=== PATIENT | male | born 1955 | race Hispanic/Latino ===

== ENCOUNTER 2020-10-12 16:02 | Inpatient (IN) | payer MEDICARE ==
[~2020-10-12] VITALS: Ht 170.2 cm; Wt 81.6 kg
[~2020-10-12 16:02] MED LIST: Z.0.ASPIRIN325 MG PO; Z.0.CLOPIDOGREL75 MG PO; Z.0.CRESTOR40 MG PO; Z.0.METOPROLOL TART2 PO; Z.0.NITROSTAT0.4 MG SL; Z.0.TEMAZEPAM15 MG PO; Z.1.ISOSORBIDE MONO3 PO
[2020-10-12] MEDS ORDERED: SODIUM CHLORIDE 0.9% 500ML 500 ML IV ONE (18:15)
[2020-10-12] MEDS ORDERED: DEXAMETHASONE SOD PHOS INJ 4 MG/ML VIAL IV ONE (18:15)
[2020-10-12] MEDS ORDERED: SODIUM CHLORIDE 0.9% 50ML 50 ML ONE (18:16)
[2020-10-12] MEDS ORDERED: IOPAMIDOL 370 MG/ML 200 ML INFUS..BTL INJ ONE (18:16)
[2020-10-12] MEDS ORDERED: DEXAMETHASONE SOD PHOS INJ 4 MG/ML VIAL ONE (18:43)
[2020-10-12] MEDS ORDERED: SODIUM CHLORIDE 0.9% 500ML 500 ML ONE (18:44)
[2020-10-12] MEDS ORDERED: SODIUM CHLORIDE 0.9% 250ML 250 ML ONE (18:44)
[2020-10-12] MEDS ORDERED: CEFTRIAXONE 1 GM VIAL ONE (18:44)
[2020-10-12] MEDS: CEFTRIAXONE 1 GM in SODIUM CHLORIDE 0.9% 50ML 50 ML IV SCH (18:46)
[2020-10-12] MEDS ORDERED: ASPIRIN 81 MG CHEW TAB PO ONE (19:45)
[2020-10-12] MEDS ORDERED: SODIUM CHLORIDE FLUSH 10 ML SYR INJ PRN (19:45)
[2020-10-12 23:50] VITALS: BP 130/88
[2020-10-13] VITALS (8 sets, daily range): BP systolic 130–142; BP diastolic 81–89
[2020-10-13] MEDS: INSULIN LISPRO 100 UNIT/1 ML 3ML VIAL SQ SCH ×5 (00:30→20:21)
[2020-10-13] MEDS ORDERED: CETIRIZINE HCL10 MG PO (03:19)
[2020-10-13] MEDS ORDERED: PANTOPRAZOLE SO40 MG PO (03:19)
[2020-10-13] MEDS ORDERED: ZETIA10 MG PO (03:19)
[2020-10-13] MEDS ORDERED: LOSARTAN POTASS25 MG PO (03:19)
[2020-10-13] MEDS ORDERED: METFORMIN HCL500 MG PO (03:19)
[2020-10-13] MEDS ORDERED: ASPIRIN81 MG PO (03:19)
[2020-10-13] MEDS ORDERED: RANEXA500 MG PO (03:19)
[2020-10-13] MEDS ORDERED: NEURONTIN300 MG PO (03:19)
[2020-10-13] MEDS ORDERED: SERTRALINE HCL50 MG PO (03:19)
[2020-10-13 07:07] LABS: CREATINE KINASE MB 0.9 ng/mL (0-5.0)
[2020-10-13] MEDS ORDERED: SODIUM CHLORIDE 0.9% 250ML 250 ML ONE (12:29)
[2020-10-13] MEDS ORDERED: REMDESIVIR 200MG/NS 100ML 200 MG in SODIUM CHLORIDE 0.9% 100 ML 100 ML IV ONE (12:30)
[2020-10-13 13:40] LABS: CREATINE KINASE 86 IU/L (30-200)
[2020-10-13] MEDS: DEXAMETHASONE SOD PHOS 10 MG/1 ML VIAL IV SCH (17:39)
[2020-10-13] MEDS: ENOXAPARIN SOD INJ 40 MG/0.4 ML SYR SC SCH (20:20)
[2020-10-13] MEDS: CEFTRIAXONE 1 GM in SODIUM CHLORIDE 0.9% 50ML 50 ML IV SCH (20:20)
[2020-10-13] MEDS ORDERED: ZOLPIDEM TARTRATE 5 MG TAB PO PRN (21:00)
[2020-10-13 21:15] LABS: CREATINE KINASE MB 1.4 ng/mL (0-5.0)
[2020-10-14] VITALS (8 sets, daily range): BP systolic 131–146; BP diastolic 78–92
[2020-10-14 06:35] LABS: ALBUMIN 2.7 g/dL (3.5-5.0); ALBUMIN/GLOBULIN RATIO 0.6 (0.8-2.0); ANION GAP 13.6 mmol/L (8-16); CALCIUM 8.5 mg/dL (8.4-10.2); CREATININE, SERUM 0.72 mg/dL (0.72-1.25); POTASSIUM 3.6 mmol/L (3.5-5.1)
[2020-10-14] MEDS: ENOXAPARIN SOD INJ 40 MG/0.4 ML SYR SC SCH ×2 (08:11→20:27)
[2020-10-14] MEDS: INSULIN LISPRO 100 UNIT/1 ML 3ML VIAL SQ SCH ×4 (08:27→21:00)
[2020-10-14] MEDS ORDERED: TEMAZEPAM 15 MG CAP PO PRN (09:15)
[2020-10-14] MEDS: METOPROLOL TARTRATE 25 MG TAB PO SCH (09:44)
[2020-10-14] MEDS: GABAPENTIN 300 MG CAP PO SCH ×2 (14:04→20:27)
[2020-10-14] MEDS: REMDESIVIR 100MG/NS 100ML 100 MG in SODIUM CHLORIDE 0.9% 100 ML 100 ML IV SCH (14:04)
[2020-10-14] MEDS: RANOLAZINE 500 MG TABSR PO SCH (16:56)
[2020-10-14] MEDS: DEXAMETHASONE SOD PHOS 10 MG/1 ML VIAL IV SCH (16:56)
[2020-10-14] MEDS: CEFTRIAXONE 1 GM in SODIUM CHLORIDE 0.9% 50ML 50 ML IV SCH (19:30)
[2020-10-15] VITALS (8 sets, daily range): BP systolic 109–151; BP diastolic 63–91
[2020-10-15] MEDS: ENOXAPARIN SOD INJ 40 MG/0.4 ML SYR SC SCH ×2 (08:45→21:00)
[2020-10-15] MEDS: SERTRALINE HCL 50 MG TAB PO SCH (08:45)
[2020-10-15] MEDS: RANOLAZINE 500 MG TABSR PO SCH ×2 (08:45→16:58)
[2020-10-15] MEDS: EZETIMIBE 10 MG TAB PO SCH (08:45)
[2020-10-15] MEDS: PANTOPRAZOLE SOD 40 MG TABEC PO SCH (08:46)
[2020-10-15] MEDS: ISOSORBIDE MONONITRATE 30 MG TAB CR PO SCH (08:46)
[2020-10-15] MEDS: METOPROLOL TARTRATE 25 MG TAB PO SCH (08:46)
[2020-10-15] MEDS: CLOPIDOGREL BISULFATE 75 MG TAB PO SCH (08:46)
[2020-10-15] MEDS: GABAPENTIN 300 MG CAP PO SCH ×3 (08:46→21:00)
[2020-10-15] MEDS: LOSARTAN POTASSIUM 25 MG TAB PO SCH (08:47)
[2020-10-15] MEDS: ASPIRIN 81 MG CHEW TAB PO SCH (08:47)
[2020-10-15] MEDS: INSULIN LISPRO 100 UNIT/1 ML 3ML VIAL SQ SCH ×4 (08:50→21:00)
[2020-10-15] MEDS: REMDESIVIR 100MG/NS 100ML 100 MG in SODIUM CHLORIDE 0.9% 100 ML 100 ML IV SCH (14:36)
[2020-10-15] MEDS: DEXAMETHASONE SOD PHOS 10 MG/1 ML VIAL IV SCH (16:58)
[2020-10-15] MEDS: CEFTRIAXONE 1 GM in SODIUM CHLORIDE 0.9% 50ML 50 ML IV SCH (20:00)
[2020-10-16] VITALS (8 sets, daily range): BP systolic 131–163; BP diastolic 81–97
[2020-10-16] MEDS: INSULIN LISPRO 100 UNIT/1 ML 3ML VIAL SQ SCH ×4 (07:30→21:45)
[2020-10-16] MEDS: ISOSORBIDE MONONITRATE 30 MG TAB CR PO SCH (09:52)
[2020-10-16] MEDS: ASPIRIN 81 MG CHEW TAB PO SCH (09:52)
[2020-10-16] MEDS: LOSARTAN POTASSIUM 25 MG TAB PO SCH (09:52)
[2020-10-16] MEDS: METOPROLOL TARTRATE 25 MG TAB PO SCH (09:53)
[2020-10-16] MEDS: PANTOPRAZOLE SOD 40 MG TABEC PO SCH (09:53)
[2020-10-16] MEDS: GABAPENTIN 300 MG CAP PO SCH ×3 (09:53→21:44)
[2020-10-16] MEDS: CLOPIDOGREL BISULFATE 75 MG TAB PO SCH (09:53)
[2020-10-16] MEDS: EZETIMIBE 10 MG TAB PO SCH (09:54)
[2020-10-16] MEDS: SERTRALINE HCL 50 MG TAB PO SCH (09:54)
[2020-10-16] MEDS: ENOXAPARIN SOD INJ 40 MG/0.4 ML SYR SC SCH ×2 (09:54→21:44)
[2020-10-16] MEDS: RANOLAZINE 500 MG TABSR PO SCH ×2 (09:54→15:59)
[2020-10-16] MEDS: REMDESIVIR 100MG/NS 100ML 100 MG in SODIUM CHLORIDE 0.9% 100 ML 100 ML IV SCH (13:31)
[2020-10-16] MEDS ORDERED: LOSARTAN POTASSIUM 25 MG TAB PO SCH (17:00)
[2020-10-16] MEDS ORDERED: METOPROLOL TARTRATE 50 MG TAB PO SCH (17:00)
[2020-10-16] MEDS: DEXAMETHASONE SOD PHOS 10 MG/1 ML VIAL IV SCH (18:55)
[2020-10-16] MEDS ORDERED: AMLODIPINE BESYLATE 5 MG TAB PO SCH (21:00)
[2020-10-16] MEDS ORDERED: METOPROLOL TARTRATE 25 MG TAB PO SCH (21:00)
[2020-10-16] MEDS: CEFTRIAXONE 1 GM in SODIUM CHLORIDE 0.9% 50ML 50 ML IV SCH (21:44)
[2020-10-17] VITALS: BP 134/94
[2020-10-17] MEDS ORDERED: PREDNISONE20 MG PO (01:00)
[2020-10-17] MEDS ORDERED: NORVASC5 MG PO (01:02)
[2020-10-17 04:00] VITALS: BP 128/91
[2020-10-17 07:20] VITALS: BP 128/91
== END 2020-10-17 08:25 | disposition home or self-care (01) | DRG 177 ==
LOC: FSED 16:45 → ERHOLD 19:33 → MED/SURG3 23:34
PROVIDERS: ADMIT Internal Medicine; ATTEND Internal Medicine
PROC: 3E0333Z Introduction of Anti-inflammatory into Peripheral Vein, Percutaneous Approach (ICD-10-PCS; 2020-10-12)
PROC: XW033E5 Introduction of Remdesivir Anti-infective into Peripheral Vein, Percutaneous Approach, New Technology Group 5 (ICD-10-PCS; principal; 2020-10-13)
DX: U07.1 COVID-19 (principal); J12.82 Pneumonia due to coronavirus disease 2019; J96.01 Acute respiratory failure with hypoxia; I50.32 Chronic diastolic (congestive) heart failure; I69.351 Hemiplegia and hemiparesis following cerebral infarction affecting right dominant side; E11.9 Type 2 diabetes mellitus without complications; I25.10 Atherosclerotic heart disease of native coronary artery without angina pectoris; Z95.1 Presence of aortocoronary bypass graft; E78.5 Hyperlipidemia, unspecified; D64.9 Anemia, unspecified; K21.9 Gastro-esophageal reflux disease without esophagitis; G40.909 Epilepsy, unspecified, not intractable, without status epilepticus; Z95.5 Presence of coronary angioplasty implant and graft; Z90.49 Acquired absence of other specified parts of digestive tract; R53.81 Other malaise; I11.0 Hypertensive heart disease with heart failure
CPT/HCPCS: 36415; 71046; 71260; 80053; 82550; 82553; 82728; 82948; 84484; 85025; 86140; 93005; 96374; 99284; J0456; J0696; J1100; J1650; J7040; J7050; Q9967; U0002